=== PATIENT | female | born 1965 | race African-American/Black ===

== ENCOUNTER 2024-10-13 20:41 | Emergency (ER) | payer OTHER ==
[~2024-10-13] VITALS: Ht 170.2 cm; Wt 74.0 kg
[2024-10-13 20:50] VITALS: O2SAT 99
[2024-10-13] MEDS: AMLODIPINE 10MG TABLET PO ONE (23:07)
[2024-10-13] MEDS: KETOROLAC 30MG/ML VIAL IM STA (23:07)
[2024-10-13] MEDS: ONDANSETRON 4MG ODT PO ONE (23:07)
[2024-10-13 23:12] LABS: CLARITY URINE CLOUDY (CLEAR); COLOR URINE YELLOW (YELLOW); GLUCOSE URINE NEGATIVE (NEGATIVE); KETONES URINE TRACE (NEGATIVE); LEUKOCYTE ESTERASE URINE TRACE (NEGATIVE); NITRITE URINE NEGATIVE (NEGATIVE); OCCULT BLOOD URINE 3+ (NEGATIVE); PROTEIN URINE 3+ (NEGATIVE); SPECIFIC GRAVITY URINE 1.015 (1.005-1.030)
[2024-10-13 23:16] LABS: BASOPHILS % 0.7 % (0.0-2.0); EOSINOPHILS % 1.7 % (0.0-5.0); HEMATOCRIT. 38.5 % (36.0-48.0); HEMOGLOBIN. 12.7 g/dL (12.0-16.0); LYMPHOCYTES % 27.2 % (20.0-50.0); MEAN CORPUSCULAR HEMOGLOBIN 27.1 pg (28.0-32.0); MEAN CORPUSCULAR VOLUME 82.3 fL (81.0-99.0); MEAN PLATELET VOLUME 8.8 fl (7.4-10.4); MONOCYTES % 8.8 % (2.0-8.0); NEUTROPHILS % 61.6 % (40.0-76.0); PLATELET 329 x1000/uL (130-400); RED BLOOD CELL COUNT 4.68 mill/uL (4.2-5.4); RED CELL DISTRIBUTION WIDTH 15.1 % (11.6-14.6); WHITE BLOOD COUNT 11.2 x1000/uL (4.5-11.0)
[2024-10-13 23:29] LABS: CARBON DIOXIDE 26 mEq/L (21-32); CHLORIDE 109 mEq/L (98-107); POTASSIUM 3.8 mEq/L (3.5-5.1); SODIUM 142 mEq/L (136-145)
[2024-10-13 23:34] LABS: CREATININE 0.9 mg/dL (0.6-1.0); TROPONIN I HIGH SENSITIVITY 21 ng/L (3.0-34)
[2024-10-13 23:35] LABS: GLUCOSE 112 mg/dL (70-105); UREA NITROGEN BLOOD 12 mg/dL (9-23)
[2024-10-13 23:36] LABS: ALANINE AMINOTRANSFERASE 9 IU/L (10-49); ALBUMIN 4.5 g/dL (3.2-4.8); ASPARTATE AMINOTRANSFERASE 14 IU/L (<34)
[2024-10-13 23:37] LABS: BILIRUBIN DIRECT 0.2 mg/dL (<=3.0); BILIRUBIN TOTAL 0.7 mg/dL (0.1-1.0); PROTEIN TOTAL 8.2 g/dL (6.0-8.3)
[2024-10-14] MEDS ORDERED: CEPH500C2 MT (00:53)
[2024-10-14] MEDS ORDERED: CLONIDINE 0.2MG TABLET PO ONE (01:00)
[2024-10-14] MEDS ORDERED: AMLO-905 MT (01:01)
[2024-10-14] MEDS: LIDOCAINE HCL 1% 20ML VIAL INFIL ONE (01:08)
[2024-10-14] MEDS: CLONIDINE 0.1MG TABLET PO NR (01:08)
[2024-10-14] MEDS: CEFTRIAXONE SODIUM 1G VIAL IM ONE (01:08)
[2024-10-14 01:49] VITALS: BP 168/100; PULSE 88; RESP 16; TEMP 36.7; O2SAT 97
[2024-10-14 02:12] LABS: SQUAMOUS EPITHELIAL CELL URINE 1+ /lpf (RARE/1+)
[2024-10-14 02:16] LABS: WBC URINE 0-2 /hpf (0-2)
[2024-10-14 02:18] LABS: BACTERIA URINE NONE SEEN
== END 2024-10-14 01:50 ==
LOC: ER 20:51
DX: R10.11 Right upper quadrant pain (principal); I11.9 Hypertensive heart disease without heart failure; N39.0 Urinary tract infection, site not specified; Z65.3 Problems related to other legal circumstances; Z79.899 Other long term (current) drug therapy; Z88.2 Allergy status to sulfonamides
CPT/HCPCS: 99285; 74176; 76705; 71045; 80076; 80048; 81003; 81025; 83690; 85025; 87086; 84484; 36415; 93005; 96372 ×2; J1885; Q0162; J0696; J3490